=== PATIENT | female | born 1955 | race Caucasian/White ===

== ENCOUNTER 2018-07-06 20:54 | Emergency (ER) | payer BC ==
[2018-07-06 21:30] VITALS: RESP 20
[2018-07-06] MEDS ORDERED: IBUPROFEN 800 MG TAB PO STA (21:58)
--- NOTE | 2018-07-06 21:58 | XR ---
EXAMINATION TYPE: XR shoulder complete LT DATE OF EXAM: 07/06/2018 COMPARISON: NONE HISTORY: Shoulder pain TECHNIQUE: 3 views FINDINGS: There is nondisplaced comminuted left humeral neck fracture. There is no dislocation. Scapu la is intact. IMPRESSION: Acute comminuted humeral neck fracture.
--- NOTE | 2018-07-06 22:30 | ED ---
General Adult HPI - General Chief complaint: Extremity Injury, Upper Stated complaint: Fall/Shoulder Pain Time Seen by Provider: 07/06/18 21:43 Source: patient, family, RN notes reviewed Mode of arrival: ambulatory Limitations: no limitations - History of Present Illness Initial comments: 62-year-old female presents to the emergency department for a chief complaint of left shoulder pain 2 hours. Patient states that she was walking on her boat when it had just rained. She states she slipped and fell onto her left shoulder. Patient states she immediately could not move the shoulder and thought it was dislocated. Patient denies hitting her head or neck. Patient denies any pain in her hand or wrist. Patient did not sustain any other injuries. Patient states she has never injured that shoulder before.Patient has no other complaints at this time including shortness of breath, chest pain, abdominal pain, nausea or vomiting, headache, or visual changes. - Related Data Previous Rx's Medication Instructions Recorded Ibuprofen [Motrin] 600 mg PO Q6HR PRN #20 tab 07/06/18 Allergies Allergy/AdvReac Type Severity Reaction Status Date / Time codeine Allergy Hallucinati Verified 07/06/18 21:30 ons latex Allergy Rash/Hives Verified 07/06/18 21:30 Review of Systems ROS Statement: Those systems with pertinent positive or pertinent negative responses have been documented in the HPI. ROS Other: All systems not noted in ROS Statement are negative. Past Medical History Past Medical History: Hypertension History of Any Multi-Drug Resistant Organisms: None Reported Past Surgical History: Appendectomy, Hysterectomy, Orthopedic Surgery, Tonsillectomy Past Psychological History: No Psychological Hx Reported Smoking Status: Current every day smoker Past Alcohol Use History: Occasional Past Drug Use History: None Reported General Exam Limitations: no limitations General appearance: alert, in no apparent distress Head exam: Present: atraumatic, normocephalic, normal inspection Eye exam: Present: normal appearance, PERRL, EOMI. Absent: scleral icterus, conjunctival injection, nystagmus, periorbital swelling ENT exam: Present: normal exam, mucous membranes moist Neck exam: Present: normal inspection, full ROM (Full flexion and extension and rotation.). Absent: tenderness (No tenderness noted), meningismus Respiratory exam: Present: normal lung sounds bilaterally. Absent: respiratory distress, wheezes, rales, rhonchi, stridor Cardiovascular Exam: Present: regular rate, normal rhythm, normal heart sounds. Absent: systolic murmur, diastolic murmur, rubs, gallop, clicks Extremities exam: Present: tenderness (Tenderness to the left shoulder. No tenderness to the left wrist and elbow. No scaphoid tenderness), normal capillary refill (Capillary refill less than 2 seconds and radial pulse 2+ in the left upper), other (Sensation intact in the left upper extremity). Absent: full ROM (Patient is unable to move the left shoulder due to pain. Patient has full range motion of the left hand and wrist. Product Technician strength 5 out of 5 in left and right upper extremities), joint swelling Back exam: Absent: tenderness Neurological exam: Present: alert, oriented X3, CN II-XII intact, other (GCS 15) Psychiatric exam: Present: normal affect, normal mood Course Vital Signs 07/06/18 07/06/18 21:25 23:08 Temperature 98.2 F 98 F Pulse Rate 76 77 Respiratory 20 20 Rate Blood Pressure 163/90 155/80 O2 Sat by Pulse 95 97 Oximetry Medical Decision Making - Medical Decision Making 62-year-old female presents to the emergency department for a chief complaint of left shoulder pain 2 hours. Patient states she was stepping on her boat when he had just rain and slipped and fell on her left shoulder. Patient admits to pain in the shoulder denies any numbess or tingling in the hand. No other injuries. On exam patient is unable to move the left shoulder. Neurovascular intact in the left upper extremity. Product Technician strength 5 out of 5 in the left upper extremity. No tenderness of the clavicle. Patient again denies hitting her head and GCS 15, no focal neuro deficits. No neck pain or tenderness. Full range of motion of the neck. X-ray shows a nondisplaced comminuted left humeral neck fracture. There is no dislocation. Scapula is intact. I did offer patient morphine within an hour of her arrival which she declines. She states she does not believe and strong pain medications and does not want any here or prescription. She just wanted Motrin so I did give her that in the emergency department as well as a prescription for Motrin. Patient also does not want to see orthopedics in this area. She is not from here and states she will follow- up with her primary care provider on Monday to schedule an orthopedic appointment. I did give her our orthopedic doctor qualifications examiner just in case she needs it. She was immobilized with a shoulder immobilizer. Disposition Clinical Impression: Fracture of humerus Disposition: HOME SELF-CARE Condition: Good Instructions: Proximal Humerus Fracture (ED) Additional Instructions: Please take Motrin and Tylenol for pain. Please rest and ice the shoulder. Use shoulder immobilizer as much as possible. Follow-up with primary care provider and orthopedics on Monday. Return to the emergency department if you have any worsening symptoms. Prescriptions: Ibuprofen [Motrin] 600 mg PO Q6HR PRN #20 tab PRN Reason: Pain Is patient prescribed a controlled substance at d/c from ED?: No Referrals: Jude Foy MD [STAFF PHYSICIAN] - 1-2 days Time of Disposition: 22:29
[2018-07-06 23:09] VITALS: BP 155/80; PULSE 77; TEMP 98
== END 2018-07-06 23:09 | disposition home or self-care (01) ==
LOC: EC 20:54
DX: S42.302A Unspecified fracture of shaft of humerus, left arm, initial encounter for closed fracture (principal); R40.2412 Glasgow coma scale score 13-15, at arrival to emergency department; F17.200 Nicotine dependence, unspecified, uncomplicated; Z88.5 Allergy status to narcotic agent; Z91.040 Latex allergy status; Z53.29 Procedure and treatment not carried out because of patient's decision for other reasons; W01.0XXA Fall on same level from slipping, tripping and stumbling without subsequent striking against object, initial encounter; Y93.01 Activity, walking, marching and hiking; Y92.814 Boat as the place of occurrence of the external cause
CPT/HCPCS: 99283